=== PATIENT | female | born 1935 | race Caucasian/White ===

== ENCOUNTER → 2017-01-18 | Outpatient (CLI) | payer MEDICARE, OTHER ==
[~2017-01-18] MED LIST: CATHETER FLUSH 10 ML SYR IV PRN; REGADENOSON 0.4 MG/5 ML SYR (LEXISCAN) IV ONE
[2017-01-18 09:25] VITALS: BP 173/81
[2017-01-18 09:37] VITALS: BP 167/77
--- NOTE | 2017-01-18 20:56 | STRESS TEST ---
DATE OF SERVICE: 01/18/2017 LEXISCAN MYOVIEW STRESS TEST REPORT Baseline heart rate is 78. Baseline blood pressure 173/81. Baseline EKG is sinus rhythm with no ischemic changes. SUMMARY: The patient was injected with 10.97 mCi of technetium-99 Myoview and the resting images were obtained. Then, the patient received 0.4 mg of Lexiscan followed by 29.8 mCi of technetium-99 Myoview. Throughout the test, there were no ischemic EKG changes. PVCs were noted late in the test. The resting and stress images were reviewed and compared in the short axis, horizontal long axis, and vertical long axis views. Review of the images showed breast attenuation with reversible ischemia involving the mid to apical anterolateral and inferolateral wall. SSS is 7, SDS 7, TID value 0.99. On the gated images, the left ventricle appeared to be normal size with normal contractility. Calculated ejection fraction 76%. CONCLUSION: 1. The patient tolerated Lexiscan well. 2. Breast attenuation with mild ischemia involving the mid to apical anterolateral and inferolateral wall. 3. Normal left ventricular size with normal contractility. Calculated ejection fraction 76%. Job ID: [id number] DocumentID: [id number] Dictated Date: 01/18/2017 17:46:32 [facility] Work[facility] Date: 01/18/2017 20:11:08 Dictated By: ROBERT GUAJARDO MD
== END ==
LOC: CARD 07:02
PROVIDERS: ATTEND Internal Medicine Cardiovascular Disease
DX: I10 Essential (primary) hypertension (principal); R60.0 Localized edema; E78.2 Mixed hyperlipidemia; E11.9 Type 2 diabetes mellitus without complications; E03.9 Hypothyroidism, unspecified; Z90.711 Acquired absence of uterus with remaining cervical stump
CPT/HCPCS: 78452; 93017

== ENCOUNTER 2017-01-22 07:08 | Day surgery (SDC) | payer MEDICARE, OTHER ==
[2017-01-22] VITALS (12 sets, daily range): BP systolic 122–200; BP diastolic 63–94
[~2017-01-22] VITALS: Ht 157.5 cm; Wt 65.3 kg
[2017-01-22] MEDS ORDERED: LIDOCAINE 1% INJ 50 ML (XYLOCAINE) VIAL ONE (07:13)
[2017-01-22] MEDS ORDERED: HEParin (CATH LAB) 2,000 ML IV ONE (07:13)
[2017-01-22] MEDS ORDERED: NS IV 1000 ML 1,000 ML IV SCH ×2 (07:15→09:52)
[2017-01-22 07:37] LABS: MEAN PLATELET VOLUME 9.1 FL (7.4-10.4); RED BLOOD COUNT 4.18 10^6/uL (4.35-5.85); RED CELL DISTRIBUTION WIDTH 15.2 % (10.0-14.5); WHITE BLOOD COUNT 5.3 10^3/uL (4.3-11.0)
--- NOTE | 2017-01-22 07:48 | Diagnostic Imaging Report ---
Portable upright radiograph of the chest. INDICATION: Abnormal stress test. FINDINGS: The lungs are clear. The heart size is normal. No effusion or pneumothorax. The mediastinum and lashon appear unremarkable. IMPRESSION: Unremarkable exam. Dictated by: Dictated on workstation # [id number]
[2017-01-22 07:51] LABS: INR 1.1 (0.8-1.4); PROTHROMBIN TIME PATIENT 14.4 SEC (12.2-14.7)
[2017-01-22 08:00] LABS: ALBUMIN 4.2 GM/DL (3.2-4.5); BILIRUBIN,TOTAL 0.6 MG/DL (0.1-1.0); CALCIUM 8.9 MG/DL (8.5-10.1); CREATININE SERUM 1.11 MG/DL (0.60-1.30); TOTAL PROTEIN 7.1 GM/DL (6.4-8.2)
[2017-01-22] MEDS ORDERED: BISO1TAB3 PO (08:01)
[2017-01-22] MEDS ORDERED: AMLO5TAB2 PO (08:01)
[2017-01-22] MEDS ORDERED: ASPI-983 PO (08:01)
[2017-01-22] MEDS ORDERED: LISI10TA2 PO (08:01)
[2017-01-22] MEDS ORDERED: METF500T4 PO (08:01)
[2017-01-22] MEDS ORDERED: OMEP20TA33 PO (08:01)
[2017-01-22] MEDS ORDERED: FURO20TA4 PO (08:01)
[2017-01-22] MEDS ORDERED: PREG75CA PO (08:01)
[2017-01-22] MEDS ORDERED: GLIM2TAB PO (08:01)
[2017-01-22] MEDS ORDERED: LEVO100T7 PO (08:01)
[2017-01-22] MEDS ORDERED: ASCO500T6 PO (08:03)
[2017-01-22] MEDS ORDERED: CINN500C2 PO (08:03)
[2017-01-22] MEDS ORDERED: fentaNYL INJECTION 100 MCG/2 ML AMP ONE (08:54)
[2017-01-22] MEDS ORDERED: MIDAZOLAM 5 MG/5 ML (VERSED) VIAL ONE (08:54)
[2017-01-22] MEDS ORDERED: VERAPAMIL 5 MG/2 ML (CALAN) VIAL IV ONE (08:54)
[2017-01-22] MEDS ORDERED: HEParin 1000 UNIT/ML (10ML VIAL) FOR BOLUS ONE (08:54)
[2017-01-22] MEDS ORDERED: NITROGLYCERIN DRIP 25 MG/D5W 250 ML IV ONE (08:54)
--- NOTE | 2017-01-22 08:57 | Cardiac Procedure Note-CS/ASA ---
Pre-Procedure Note Pre-Op Procedure Note H&P Reviewed The H&P was reviewed, patient examined and no changes noted. Date H&P Reviewed: Jan 22, 2017 Time H&P Reviewed: 08:56 Conscious Sedation Pre-Proced Time Reviewed: 08:56 ASA Class: 3 Airway Mallampati Classification: ([place] appropriate class) I. II. III, IV Lungs Heart ASA score ASA 1: a normal healthy patient ASA 2: a patient with a mild systemic disease (mid diabetes, controlled hypertension, obesity x ASA 3: a patient with a severe systemic disease that limits activity (angina , COPD, prior Myocardial infarction) ASA 4: a patient with an incapacitating disease that is a constant threat to life (CHF, renal failure) ASA 5: a moribund patient not expected to survive 24 hrs. (ruptured aneurysm) ASA 6: a declared brain patient whose organs are being harvested. For emergent operations, add the letter E after the classification Grade 3 Sedation Plan: Analgesia, Amnesia, Plan communicated to team members, Discussed options with patient/fam, Discussed risks with patient/fam Note The patient is an appropriate candidate to undergo the planned procedure, sedation, and anesthesia. The patient immediately re-assessed prior to indication. ROBERT GUAJARDO MD Jan 22, 2017 08:57
[2017-01-22] MEDS ORDERED: POTA10TA PO (09:54)
--- NOTE | 2017-01-22 09:55 | Discharge Inst-Post CATH ---
Discharge Inst-CATH Post Cardiac Cath D/C Inst Follow Up/Plan Appointment with Dr. Smith's office in 2-4 weeks Hold metformin for 48 hours CARDIAC CATH DISCHARGE INSTRUCTIONS *Hold Metformin for 48 hours post heart cath. ACTIVITY * Go Home directly and rest. * Limit activity of the leg (or wrist if it was used) for 7 days including aerobics, swimming, jogging, bicycling, etc. * Restrict stair-climbing for 7 days if possible, if not, climb up with your non -cath leg, then bring together on the same step. * Avoid lifting, pushing, pulling or excessive movement of the affected extremity for 7 days. * Customary sexual activity may be resumed after 2 days-use caution not to use a position that strains or causes pain to the affected extremity. * No driving for 24 hours. * NO SMOKING. * Avoid straining for bowel movements for 7 days. * Gentle walking on level ground is allowed. * Returning to work will depend on the type of procedure and the results. Your doctor will discuss this with you. CALL YOUR DOCTOR FOR ANY OF THE FOLLOWING: *If bleeding from the puncture site occurs- Apply gentle pressure to site with clean cloth and call your doctor or EMS. * If a knot or lump forms under the skin, increases in size, or causes pain. * If bruising appears to be worsening or moving further down your leg instead of disappearing. * Temperature above 101 F. CARE OF YOUR GROIN INCISION; * Bruising or purple discoloration of the skin near the puncture site is common. * You may shower only, no bathtub bathing for 5 days. Be careful to avoid slipping as your leg may feel stiff. * If a closure device was used on your femoral artery, please see the attached guide regarding care of the device and your leg. * REMOVE the dressing from your groin the next day after your procedure in the shower. CARE OF YOUR WRIST INCISION; * Bruising or purple discoloration of the skin near the puncture site is common. * You may shower. * DO NOT submerge wrist. * Remove dressing in 24 hours. ROBERT SMITH MD Jan 22, 2017 09:55
--- NOTE | 2017-01-22 09:59 | Cardiac Cath Report ---
Cardiac Cath Report Physician (s)/Commercial Airplane Pilot (s) Physician ROBERT GUAJARDO MD Pre-Procedure Diagnosis Pre-Procedure Diagnosis: Coronary artery disease Post-Procedure Note Procedure Start Date: Jan 22, 2017 Name of Procedure: Left heart catheterization, left ventriculogram. [id number] Findings/Procedure Note PROCEDURE NOTE: After explaining the procedure to the patient, all pros and cons were explained, all questions were answered. The patient signed the consent and then she was placed on the cardiac catheterization laboratory. The patient was placed on the cardiac catheterization laboratory. wrist was prepped SL fashion local anesthesia was used. Sheath placed in the right radial artery. [place] catheter was used asked the left ventricle, left ventriculogram was done, intubated the right coronary artery and right coronary angiogram was done [place] catheter was used for the left coronary system and angiogram was done At the end of the procedure the sheath was removed. Closure device was used FINDINGS: Hemodynamics LV 112/8 and diastolic pressure of 8 Aorta 106/54 mean of 75 ANATOMY: Left Main is free of obstructive disease Left Anterior Descending has mild disease distally nonobstructive disease Left Circumflex has no significant obstructive disease Right Coronory Artery is dominant artery with no sig obstructive disease LV Gram is done showing normal left ventricular size with normal contractility estimated ejection fraction 60 percent CONCLUSION: 1. Mild coronary artery disease no significant obstructive disease 2. Normal left ventricular size and systolic function estimated ejection fraction 60 percent DISCUSSION AND RECOMMENDATION: Risk factors modification. No intervention is warranted Anesthesia Type: Conscious Sedation Estimated blood loss (mL): 15 ml Contrast Amount: 65 ml Total Radiation Dose: 178 mGy Post-Procedure Diagnosis Post-operative diagnosis: Coronary artery disease Hypertension Hyperlipidemia Diabetes mellitus ROBERT GUAJARDO MD Jan 22, 2017 09:59
[2017-01-22] MEDS ORDERED: KCL 20 MEQ TAB (K-DUR) PO ONE (10:00)
== END 2017-01-22 13:30 | disposition home or self-care (01) ==
LOC: CATH 07:08 → SURG 10:09 → CATH 13:30
PROVIDERS: ATTEND Internal Medicine Cardiovascular Disease
DX: I25.10 Atherosclerotic heart disease of native coronary artery without angina pectoris (principal); Z11.2 Encounter for screening for other bacterial diseases; I10 Essential (primary) hypertension; E78.5 Hyperlipidemia, unspecified; E11.9 Type 2 diabetes mellitus without complications; N28.9 Disorder of kidney and ureter, unspecified; Z82.49 Family history of ischemic heart disease and other diseases of the circulatory system; Z79.899 Other long term (current) drug therapy; Z88.2 Allergy status to sulfonamides; Z88.5 Allergy status to narcotic agent
CPT/HCPCS: 36415; 71010; 80053; 80061; 82962; 85027; 85610; 85730; 87081; 93005; 93458